=== PATIENT | male | born 1975 | race Caucasian/White ===

== ENCOUNTER → 2020-06-20 | Outpatient (CLI) | payer OTHER ==
[~2020-06-20] MED LIST: 0.9 % SODIUM CHLORIDE 10 ML DISP.SYRIN. ID ONE; GADOTERATE 5 MMOL/10ML VIAL. INT ART ONE; IOHEXOL 300 MG/ML 50 ML VIAL. INT ART ONE; LIDOCAINE 1% Multi-Dose 20 ML VIAL. ID ONE; LISI-338 PO; TEST5GEL TP
--- NOTE | 2020-06-20 18:12 | KCIC ---
EXAM: Fluoroscopically guided left shoulder joint injection for MRI arthrogram INDICATION: Left shoulder pain COMPARISON: None TECHNIQUE/FINDINGS: The purpose of the procedure and risks including infection, bleeding, contrast reaction, and pain were discussed with the patient. Informed consent was obtained. A timeout was performed. After obtaining consent, the patient was placed supine on the fluoroscopy table with the left shoulder externally rotated. The skin overlying the left shoulder was marked, sterilized and draped. Superficial and deep soft tissues were anesthetized with 1% lidocaine. Utilizing fluoroscopic guidance, a 22-gauge 3.5" needle was advanced into the joint. Intraarticular position was confirmed with injection of a small amount of iodinated contrast. Subsequently, of a solution containing the following items was instilled into the joint: 10 mL of 1% lidocaine, 5 mL of sterile saline, 5 mL of non-ionic iodinated contrast, and 0.1 mL of gadolinium. At the end of the procedure, the needle was removed. The overlying skin was cleansed and covered with a bandaid. The patient tolerated the procedure well and was free of immediate complications. The patient was transferred for the MR portion of the exam in stable condition. Total fluoroscopic time: 18 seconds. IMPRESSION: Technically successful left shoulder injection for the purposes of MR arthrogram. Electronically signed by: Adrianne Yuen MD (06/20/2020 6:09 PM) [id number]
--- NOTE | 2020-06-21 11:16 | KCIC ---
EXAM: MRI LEFT SHOULDER WITH CONTRAST INDICATION: Nontraumatic complete tear of rotator cuff. Tear of glenoid labrum. COMPARISON: None TECHNIQUE: Multiplanar, multisequence imaging of the left shoulder After intra-articular injection of contrast, performed separately. FINDINGS: Exam is limited by a motion artifact on several images. ROTATOR CUFF: There is mild bursal sided fraying of the distal anterior supraspinatus tendon. The infraspinatus, subscapularis, and teres minor tendons are intact. No full-thickness cuff tear. No rotator cuff muscle atrophy or edema.. LABRUM: The labrum is intact. BICEPS TENDON: The biceps tendon is intact and located. ACROMIOCLAVICULAR JOINT: Acromioclavicular joint is within normal limits. There is type II acromion with lateral downsloping. GLENOHUMERAL JOINT: Articular cartilage is intact. Marrow signal is normal. Alignment is normal.. OTHER: Contrast distends the joint. Small amount of fluid in the subacromial-subdeltoid bursa. No communication of contrast with the subacromial-subdeltoid bursa. No intra-articular body. IMPRESSION: 1. Mild bursal sided fraying of the distal anterior supraspinatus tendon. No discrete rotator cuff tear. 2. Mild subacromial subdeltoid bursitis. Lateral downsloping acromion. 3. No discrete labral tear. Electronically signed by: Adrianne Yuen MD (06/21/2020 11:13 AM) [id number]
== END | disposition home or self-care (01) ==
LOC: KCIC 14:03
PROVIDERS: ATTEND Physician Assistant
DX: M75.102 Unspecified rotator cuff tear or rupture of left shoulder, not specified as traumatic (principal); S43.432A Superior glenoid labrum lesion of left shoulder, initial encounter; Z79.899 Other long term (current) drug therapy; X58.XXXA Exposure to other specified factors, initial encounter; Y93.89 Activity, other specified; Y92.89 Other specified places as the place of occurrence of the external cause; Y99.8 Other external cause status
CPT/HCPCS: 23350; 73222; 77002; A9575; J3490; Q9967; 73040